=== PATIENT | male | born 1985 | race American Indian/Alaskan Native ===

== ENCOUNTER 2020-04-16 14:20 | Emergency (ER) | payer SELFPAY ==
[2020-04-16 14:27] VITALS: BP 174/107
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
== END 2020-04-16 16:22 | disposition home or self-care (01) ==
LOC: ED 14:20
DX: S86.912A Strain of unspecified muscle(s) and tendon(s) at lower leg level, left leg, initial encounter (principal); Z79.899 Other long term (current) drug therapy; X58.XXXA Exposure to other specified factors, initial encounter; Y93.89 Activity, other specified; Y92.89 Other specified places as the place of occurrence of the external cause; Y99.8 Other external cause status

== ENCOUNTER 2020-04-28 16:42 | Emergency (ER) | payer SELFPAY ==
[2020-04-28 16:59] VITALS: BP 180/97
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
--- NOTE | 2020-04-28 20:41 | Vascular Lab Report ---
VL venous duplex LE LT INDICATION / CLINICAL INFORMATION: left leg swelling/pain. TECHNIQUE: Duplex doppler imaging was performed using venous compression and other maneuvers. COMPARISON: None available. FINDINGS: No venous thrombosis is identified within the visualized extremity vasculature. ADDITIONAL FINDINGS: Fluid collection, see impression. IMPRESSION: 1. No sonographic evidence for DVT in the visualized left lower extremity vasculature. 2. Simple appearing fluid collection seen along patient's medial left upper calf extending along the medial aspect out of the popliteal fossa. This could represent a ruptured Trevino's cyst. No hyperemia to suggest abscess. Signer Name: Garfield Palumbo MD Signed: 04/28/2020 8:37 PM Workstation Name: [id number]
== END 2020-04-28 21:09 | disposition home or self-care (01) ==
LOC: ED 16:42
DX: M79.89 Other specified soft tissue disorders (principal); M25.562 Pain in left knee; R03.0 Elevated blood-pressure reading, without diagnosis of hypertension; I10 Essential (primary) hypertension; Z79.899 Other long term (current) drug therapy
CPT/HCPCS: 99283